=== PATIENT | male | born 1980 | race Two or more races ===

== ENCOUNTER 2021-11-07 14:23 | Emergency (ER) | payer OTHER ==
[~2021-11-07] VITALS: Ht 177.8 cm; Wt 90.7 kg
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
--- NOTE | 2021-11-07 14:46 | NUR ---
X RAY AT BEDSIDE
[2021-11-07 15:36] VITALS: BP 126/81
--- NOTE | 2021-11-07 15:36 | NUR ---
Patient discharged to home in stable condition. Written and verbal after care instructions given. Patient verbalizes understanding of instruction.
== END 2021-11-07 15:37 ==
LOC: ER 14:23
DX: S93.401A Sprain of unspecified ligament of right ankle, initial encounter (principal); S60.211A Contusion of right wrist, initial encounter; S50.01XA Contusion of right elbow, initial encounter; S70.01XA Contusion of right hip, initial encounter; V02.99XA Pedestrian with other conveyance injured in collision with two- or three-wheeled motor vehicle, unspecified whether traffic or nontraffic accident, initial encounter; Y93.89 Activity, other specified; Y92.89 Other specified places as the place of occurrence of the external cause; Y99.8 Other external cause status
CPT/HCPCS: 73080-TC; 73110; 73502; 73610-TC

== ENCOUNTER 2024-08-17 20:36 | Emergency (ER) | payer OTHER ==
[~2024-08-17] VITALS: Ht 177.8 cm; Wt 99.8 kg
[2024-08-17] MEDS: HYDROCODONE/APAP 10/325MG TABLET PO ONE (21:37)
[2024-08-17] MEDS ORDERED: HYDROCODONE/APAP 10/325MG TABLET ONE (21:37)
[2024-08-17 22:37] VITALS: BP 133/79; TEMP 98.4; O2SAT 96
== END 2024-08-17 22:38 ==
LOC: ER 20:38
DX: M79.641 Pain in right hand (principal); M84.44 Pathological fracture, hand and fingers
CPT/HCPCS: 73130-TC